=== PATIENT | female | born 1960 | race Caucasian/White ===

== ENCOUNTER 2021-10-11 11:14 | Outpatient (CLI) | payer BC | END 2021-10-11 11:15 | disposition home or self-care (01) | LOC: CSHMAMMO 11:14 | PROVIDERS: ATTEND Internal Medicine Hematology & Oncology | DX: Z12.31 Encounter for screening mammogram for malignant neoplasm of breast (principal); Z85.3 Personal history of malignant neoplasm of breast; Z98.890 Other specified postprocedural states | CPT/HCPCS: 77063; 77067 ==

== ENCOUNTER 2021-10-14 09:16 | Outpatient (CLI) | payer BC ==
[~2021-10-14 09:16] MED LIST: Iopamidol 300 61% 100 ML VIAL FS ONE
== END 2021-10-14 09:17 | disposition home or self-care (01) ==
LOC: CSHCT 09:16
PROVIDERS: ATTEND Internal Medicine Hematology & Oncology
DX: C50.412 Malignant neoplasm of upper-outer quadrant of left female breast (principal); C78.7 Secondary malignant neoplasm of liver and intrahepatic bile duct
CPT/HCPCS: 71260; 74177; 82565

== ENCOUNTER 2022-10-23 09:00 | Outpatient (CLI) | payer BC | END 2022-10-23 09:01 | disposition home or self-care (01) | LOC: CSHCT 09:00 | PROVIDERS: ATTEND Internal Medicine Hematology & Oncology | DX: C50.412 Malignant neoplasm of upper-outer quadrant of left female breast (principal); C78.7 Secondary malignant neoplasm of liver and intrahepatic bile duct; Z98.890 Other specified postprocedural states; R91.8 Other nonspecific abnormal finding of lung field | CPT/HCPCS: 71260; 74177; 82565; Q9967 ==